=== PATIENT | female | born 1995 | race African-American/Black ===

== ENCOUNTER 2017-05-01 21:06 | Emergency (ER) | payer MEDICAID ==
[~2017-05-01] VITALS: Ht 162.6 cm; Wt 55.0 kg
[2017-05-01] MEDS ORDERED: IBUPROFEN 600MG TABLET PO ONE (23:30)
[2017-05-01] MEDS ORDERED: ONDANSETRON 4MG ODT PO ONE (23:45)
[2017-05-02 00:15] LABS: CLARITY URINE CLEAR (CLEAR); COLOR URINE YELLOW (YELLOW); KETONES URINE TRACE (NEGATIVE); LEUKOCYTE ESTERASE URINE NEGATIVE (NEGATIVE); NITRITE URINE NEGATIVE (NEGATIVE); OCCULT BLOOD URINE 1+ (NEGATIVE); PROTEIN URINE NEGATIVE (NEGATIVE); SPECIFIC GRAVITY URINE 1.024 (1.005-1.030); UROBILINOGEN URINE 0.2 E.U./dL (0.2-1.0)
[2017-05-02 00:46] LABS: *AMPHETAMINES SCREEN URINE NEGATIVE (NEGATIVE); *BARBITURATES SCREEN URINE NEGATIVE (NEGATIVE); *BENZODIAZEPINES SCREEN URINE NEGATIVE (NEGATIVE); *COCAINE SCREEN URINE NEGATIVE (NEGATIVE); CANNABINOID URINE SCREEN NEGATIVE (NEGATIVE); METHADONE URINE SCREEN NEGATIVE (NEGATIVE); OPIATES URINE SCREEN NEGATIVE (NEGATIVE); PHENCYCLIDINE URINE SCREEN NEGATIVE (NEGATIVE)
[2017-05-02 00:51] LABS: BASOPHILS % 0.2 % (0.0-2.0); EOSINOPHILS % 0.1 % (0.0-5.0); HEMATOCRIT. 38.2 % (36.0-48.0); LYMPHOCYTES % 10.6 % (20.0-50.0); MEAN CORPUSCULAR HEMOGLOBIN 27.7 pg (28.0-32.0); MEAN CORPUSCULAR VOLUME 81.4 fL (81.0-99.0); MEAN PLATELET VOLUME 7.4 fl (7.4-10.4); MONOCYTES % 5.4 % (2.0-8.0); NEUTROPHILS % 83.7 % (40.0-76.0); PLATELET 291 x1000/uL (130-400); RED CELL DISTRIBUTION WIDTH 12.9 % (11.6-14.6)
[2017-05-02 01:05] LABS: CARBON DIOXIDE 24 mEq/L (21-32); CHLORIDE 105 mEq/L (98-107)
[2017-05-02 02:06] VITALS: BP 118/64
== END 2017-05-02 02:05 | disposition home or self-care (01) ==
LOC: ER 21:06
DX: N61.0 Mastitis without abscess (principal); J06.9 Acute upper respiratory infection, unspecified; J45.909 Unspecified asthma, uncomplicated
CPT/HCPCS: 36415; 80053; 80305; 81001; 81003; 81025; 85025; 99284; Q0162

== ENCOUNTER 2021-01-22 10:25 | Emergency (ER) | payer MEDICAID ==
[~2021-01-22] VITALS: Ht 160 cm; Wt 45.0 kg
[2021-01-22] MEDS ORDERED: IBUPROFEN 800MG TABLET PO ONE (11:00)
[2021-01-22 11:34] VITALS: BP 112/66
== END 2021-01-22 12:07 | disposition home or self-care (01) ==
LOC: ER 10:25
DX: J06.9 Acute upper respiratory infection, unspecified (principal); J45.909 Unspecified asthma, uncomplicated; I49.9 Cardiac arrhythmia, unspecified; Z20.822 Contact with and (suspected) exposure to COVID-19
CPT/HCPCS: 71045; 93005; 99285; C9803; U0003; U0005

== ENCOUNTER 2021-05-08 18:39 | Emergency (ER) | payer MEDICAID ==
[~2021-05-08] VITALS: Ht 162.6 cm; Wt 54.0 kg
[2021-05-08] MEDS ORDERED: IBUPROFEN 400MG TABLET PO ONE (20:45)
[2021-05-08 21:14] LABS: CLARITY URINE CLEAR (CLEAR); COLOR URINE YELLOW (YELLOW); KETONES URINE 1+ (NEGATIVE); LEUKOCYTE ESTERASE URINE TRACE (NEGATIVE); NITRITE URINE NEGATIVE (NEGATIVE); OCCULT BLOOD URINE NEGATIVE (NEGATIVE); PH URINE 5.5 (4.5-8.0); PROTEIN URINE NEGATIVE (NEGATIVE); SPECIFIC GRAVITY URINE 1.015 (1.005-1.030); UROBILINOGEN URINE 0.2 E.U./dL (0.2-1.0)
[2021-05-08 21:52] VITALS: BP 104/60
[2021-05-08] MEDS ORDERED: METR500T MT (22:10)
[2021-05-08] MEDS ORDERED: IBUP-2028 MT (22:10)
== END 2021-05-08 22:32 | disposition home or self-care (01) ==
LOC: ER 18:39
DX: U07.1 COVID-19 (principal); J45.909 Unspecified asthma, uncomplicated; I49.9 Cardiac arrhythmia, unspecified
CPT/HCPCS: 81003; 81025; 87804; 93005; 99283; C9803; U0003; U0005; Z7610

== ENCOUNTER 2021-09-05 11:36 | Emergency (ER) | payer MEDICAID, OTHER ==
[~2021-09-05] VITALS: Ht 160 cm; Wt 55.0 kg
[~2021-09-05 11:36] MED LIST: IBUP-2028 MT; METR500T MT
[2021-09-05] MEDS ORDERED: ONDANSETRON HCL 4MG/2ML INJ IV STA (12:48)
[2021-09-05] MEDS ORDERED: KETOROLAC 30MG/ML VIAL IV STA (12:48)
[2021-09-05] MEDS ORDERED: SODIUM CHLORIDE 0.9% 1,000 ML IV ONE (13:00)
[2021-09-05] MEDS ORDERED: KETOROLAC 30MG/ML VIAL IV NR (14:00)
[2021-09-05] MEDS ORDERED: ONDANSETRON HCL 4MG/2ML INJ IV NR (14:00)
[2021-09-05] MEDS ORDERED: IPRATROPIUM BROMIDE (0.02%) 0.5MG/2.5ML NEB HHN STA (14:08)
[2021-09-05] MEDS ORDERED: ALBUTEROL (0.083%) 2.5MG/3ML NEB HHN STA (14:08)
[2021-09-05 14:11] LABS: HEMATOCRIT. 42.5 % (36.0-48.0); HEMOGLOBIN. 14.5 g/dL (12.0-16.0); MEAN CORPUSCULAR HEMOGLOBIN 28.1 pg (28.0-32.0); MEAN CORPUSCULAR VOLUME 82.5 fL (81.0-99.0); MEAN PLATELET VOLUME 7.8 fl (7.4-10.4); PLATELET 188 x1000/uL (130-400); RED BLOOD CELL COUNT 5.15 mill/uL (4.2-5.4); RED CELL DISTRIBUTION WIDTH 13.1 % (11.6-14.6)
[2021-09-05 14:19] LABS: CHLORIDE 104 mEq/L (98-107)
[2021-09-05 14:28] LABS: PLATELET ESTIMATE NORMAL
[2021-09-05] MEDS ORDERED: TUSSL MT ×2 (15:50→15:54)
[2021-09-05] MEDS ORDERED: ALBU6.7H9 INH (15:54)
[2021-09-05 16:25] VITALS: BP 136/81
[2021-09-05] MEDS ORDERED: ACET650T37 MT (17:09)
[2021-09-05] MEDS ORDERED: IBUP-2028 MT (17:09)
== END 2021-09-05 17:27 | disposition home or self-care (01) ==
LOC: ER 11:36
DX: B34.9 Viral infection, unspecified (principal); J45.909 Unspecified asthma, uncomplicated; Z20.822 Contact with and (suspected) exposure to COVID-19; Z98.890 Other specified postprocedural states; Z90.89 Acquired absence of other organs; Z91.013 Allergy to seafood
CPT/HCPCS: 36415; 71045; 80053; 85025; 87426; 94640; 96361; 96374; 96375; 99284; J1885; J2405; J7030